=== PATIENT | male | born 1950 | race American Indian/Alaskan Native ===

== ENCOUNTER 2018-10-05 10:48 | Observation (INO) | payer MEDICARE ==
[2018-09-29 08:09] VITALS: BMI 31.1
[2018-10-05] MEDS ORDERED: Bacitracin 50,000 UNIT in Sodium Chloride 0.9% Irrig 1,000 ML IR SCH (12:15)
[2018-10-05] MEDS ORDERED: Midazolam 2 MG/2 ML VIAL ONE (12:31)
[2018-10-05] MEDS ORDERED: Propofol 10 mg/ml Inj (20 ML) ONE ×2 (12:31→14:09)
[2018-10-05] MEDS ORDERED: Gentamicin 80 mg in 0.9% NS 160 MG/200 ML BAG IVPB ONE (12:38)
[2018-10-05] MEDS ORDERED: Vancomycin 1 g Inj ONE (12:40)
[2018-10-05] MEDS ORDERED: Neostigmine Methylsulfate 3mg/3ml Syringe IV ONE (16:06)
[2018-10-05] MEDS: HYDROmorphone 0.5 mg/0.5 ml ISec IVP PRN ×2 (16:40→17:10)
[2018-10-05] MEDS ORDERED: Oxycodone/Acetaminophen 5/325 mg Tab PO PRN (17:41)
[2018-10-05] MEDS ORDERED: ceFAZolin IV 1 gm in Dextrose 1 GM/50 ML BAG IVPB SCH (17:45)
[2018-10-05 20:07] VITALS: BP 137/75; PULSE 83; RESP 14; TEMP 98; O2SAT 99
--- NOTE | 2018-10-09 10:38 | HP ---
HISTORY OF PRESENT ILLNESS: A very pleasant gentleman, he is a 68-year-old who has erectile dysfunction. He has history of prostate cancer, on radiation treatment. Currently, no evidence of disease. He has rectal dysfunction. He has tried oral therapy. He has tried injection therapy, which was no successful and he also is very interested. His sex drive is within normal limits. We discussed options available. He is here today for insertion of an inflatable penile prosthesis, see below. Past medical, surgical and the patient's medical clearance on the chart. REVIEW OF SYSTEMS: Otherwise, is unremarkable. No weight loss, chest pain, or shortness of breath. No gross hematuria. No major voiding complaints. Cystoscopy blackwell everything is within normal limits. The PSA is . ALLERGIES: . PHYSICAL EXAMINATION GENERAL: A well-nourished male, in no apparent distress. VITAL SIGNS: Within normal limits in the chart. LUNGS: Clear. ABDOMEN: Soft, nontender . . There is no real below-knee plaque. no lesion. . LABORATORY DATA: See chart; PSA, BUN, creatinine, CBC, hemoglobin A1c, etc., all noted. IMPRESSION: A 68-year-old gentleman with erectile dysfunction, who we have discussed options of risks, benefits, treatment, alternatives. We showed videos. We showed pictures, diagram, etc. The patient is noted to be . PLAN: 1. Preparation, we have obtained medical clearance. 2. We have to ask the patient to prep himself ____ cleanse the the day before. 3. . We will maintain strict several enforcement in the OR with keeping the traffic to a minimum. I have discussed this with the staff. We will provide the most sterile environment. In preparation for the procedure, see operative note. I have prepared write up on various insertion techniques. We will prepare antibiotic prophylaxis. . Risks and benefits discussed. I discussed physically that many patients feel their penis to get smaller. I also discussed that sometimes it could rupture the urethra. I also discussed with the patient that there could be secondary consequences, that the may not look well. Sometimes it is difficult to place it properly. We also discussed the risks and benefits of sexual activity and the availability and the not need for medical therapy and other various benefits. After discussing all those risks, benefits, and alternatives he is here now. antibiotics prophylaxis. We will use vancomycin and gentamicin. We will prepare a full 10 minute prep. Keep the traffic to a minimum and we will plan for an insertion of an inflatable three-piece prosthesis. We have also as well. Claudy Bowens MD
--- NOTE | 2018-10-09 13:25 | OP ---
PROCEDURE DATE: 10/05/2018 PREOPERATIVE DIAGNOSES: Erectile dysfunction, voiding dysfunction, and prostate cancer. POSTOPERATIVE DIAGNOSES: Erectile dysfunction, voiding dysfunction, and prostate cancer. PROCEDURE: Insertion of a Kwong catheter, insertion of an inflatable three-piece penile prosthesis from the [employer]. There were no complications. ESTIMATED BLOOD LOSS: Less than 10 mL. UROLOGY OPERATIVE FINDINGS: 1. There is no stricture. 2. We are able to insert the inflatable penile prosthesis, tolerated the procedure well without any backflow. it was determined pump that goes up and down very easily. Pump is in the midline of the scrotum. It will be inflated, centrally located and taking anteriorly. There were no complications during the procedure. INDICATIONS: See the history and physical for details. This is a very pleasant 68-year-old gentleman, who we exhausted other medical therapy despite oral therapy. Discussed injection therapy. We discussed vacuum erection device. We discussed risk factors. We discussed talking to people, other doctors' second opinions and third opinions. After discussing all those options, the patient is currently MANPREET from his prostate cancer. It is fairly recent but it is MANPREET, and he is very disturbed by his erection, and he has a . He comes to the office with his friend who has having . His troponins are slightly around the . He is on medical therapy The patient said this is not working well. We have discussed risks, benefits and alternatives. We discussed the benefits from prosthesis and he is here now for the above procedure. Prior to any procedure, the patient was brought to the OR, placed on a table. Prior to anything, after anesthesia was provided, time-out called , we now prepped the patient for full 10 minutes or may be a little bit longer with the Betadine prep. Changed our gloves we had after Betadine. We really scrubbed the abdomen, pelvis, perineal region. We had placed the patient with Venodyne boots in place. We had placed the patient in a little bit of frog-leg positioning. and did it as sterilely as possible and really scrubbed the patient very carefully. This of course followed a shave. Afterwards, the patient . We also gave the patient antibiotics prophylaxis, using both vancomycin a whole gram and gentamicin, we used 180 mg. contained of a 100 mg and 50 mg. Last BUN, creatinine, sugar all noted. After all those prep was done, the patient was now prepped again with ChloraPrep. the device was few minutes before we began. Once this was done, the patient was draped sterilely. I say that I myself prepped in about 10 minutes. May be even longer and the physician assistant as well. We made sure that we were as sterile as possible. We now outlined our penoscrotal region and we made an incision a small incision as possible. We carried this down to the underlying muscles. Now we sewed up to the corpora on each side lateral left and right, I do want to mention I inserted a Kwong catheter, used a 14-Icelandic, inserted easily and well. I could feel the urethra throughout. We now dissected down to our corpora levels. Staying far away from urethra, very gently just moving the wound from side to side did we allow to do this. With stay sutures in the corporotomy, we made incision, and now we dilated the dilation went easily well. There was a little bit of tissue that was somewhat difficult but mostly it is very, very little the penis dilated up slowly, carefully, and gently. Until we were free, we were now going up to 13 proximally and the 12 distally. We did the same thing on the left and right sides. Just irrigating with antibiotics. We now did our sizes. We measured our sizes 20 cm. Once we did this, we had placed a nice few stay sutures. We were ready for insertion of our penile prosthesis, inflatable. This is all prepared in sterile technique with a autobody technician from [employer] here available to help us. We examined. We inflated them. We made sure that it seated well. Everything is seated really very nicely, and we were able to develop a full erection and get it to the distal shift to the midglans region. So distally we went to the midglans, nicely we used about 20 cm on both sides left and right sides. Once we did this, we confirmed our position. We kept our rubber all standard stuff. We now closed our corporotomy. Now we will dilate to the scrotal, we just dissected down in the Dartos of middle little pouch. We kept it midline. The patient we kept a midline with the pump in the scrotum. We if we can get it. We put a little pursestring to keep it in place being very careful as we did so very, very carefully with vision. ____. No difficulty. I do want to mention we had originally been using the Rehan retractor. We kept checking the bladder, kept emptying the bladder. You will see this below. We kept irrigating with antibiotics. once we had the Dartos pouch and had the pump in place. We now turned our attention towards placing the reservoir. We did this all through one incision. Again, I do want to mention we kept irrigating with antibiotics. We now were able to place our clamp up. We used the blue retractor like a Ken. We worked our way up until we felt the pubic tubercle. We felt the pubic bone. We went underneath the muscle and when went as far as we could through the internal very nicely and carefully, and keeping ourselves below the rectus muscle, and we were able to get the reservoir in, in a very good fashion. We had created space with our finger, then a little bit with the clamp, just carefully no bleeding is noted. The patient tolerated that portion well. We now inflated to about 100 mL. There is really no back pressure, we did was we checked ourselves. mentioned earlier when we were doing the corporotomy, to make sure that we had no but we have the measure straight up. Now with the reservoir, the same thing, we just checked the back pressure____ up. We are able to remove a 100 mL of ____. Once we did this, we now made our connection. We inflated and we saw a very good response really. There is no buckling, appendages. The penis was straight. It is straight, rigid, it is to the midcorporal gland and there is no backflow. connected. Again we checked irrigating. We used the crimper tool. We could firm it in the location. We inflated, deflated, inflated, deflated to make sure it is working and we laid it in a moderately inflated with about 3 to 4 pumps, may be 5 pumps even. We now moved to close the wound. Being careful layer by layer, being careful not to put any stitches anywhere near the needles, anywhere near the tubing. We closed this. We applied dry sterile dressing to the skin. We wrapped it with the Mummy wrap. Overall the patient tolerated this without complications. The patient tolerated without complications. I just wanted to make a note, asked to keep the patient in hospital he requested to the home if that is doing well. Kwong is draining well. The patient is pain-free. We are going to provide the patient with antibiotic prophylaxis. We are going to send him home with both Keflex and ciprofloxacin. We removed the Kwong, and we will follow him as an outpatient to remove everything. Claudy Bowens MD
== END 2018-10-05 19:00 | disposition home or self-care (01) ==
LOC: C.SDS 10:48 → C.9S 17:31
PROVIDERS: ADMIT Urology; ATTEND Urology
DX: N52.8 Other male erectile dysfunction (principal); C61 Malignant neoplasm of prostate; E11.9 Type 2 diabetes mellitus without complications; E03.9 Hypothyroidism, unspecified; I11.0 Hypertensive heart disease with heart failure
CPT/HCPCS: 54405; 82948; 87086; C1813; J0690; J1170; J1580; J2250; J2405; J2704; J2710; J3010; J7030